=== PATIENT | male | born 1960 | race Hispanic/Latino ===

== ENCOUNTER 2022-07-10 09:51 | Outpatient (CLI) | payer BC ==
[2022-07-10 11:03] LABS: Bilirubin Neg (Negative); Blood, Urine Negative (Negative); Clarity Slightly Cloudy (Clear); Glucose, Urine (Dipstick) >=1000 mg/dL (Negative); Ketone, Urine 5 mg/dL (Negative); Leukocyte Negative (Negative); Nitrite Negative (Negative); Protein, Urine (Dipstick) Negative (Neg-Trace); Specific Gravity, Urine 1.005 (1.005-1.030); Urobilinogen Normal mg/dL (Less than 2)
== END 2022-07-10 09:52 | disposition home or self-care (01) ==
LOC: LABBT 09:51
PROVIDERS: ATTEND Orthopaedic Surgery
DX: Z01.818 Encounter for other preprocedural examination (principal); M17.12 Unilateral primary osteoarthritis, left knee; J98.6 Disorders of diaphragm
CPT/HCPCS: 71046; 80048; 81003; 85025; 85610; 86850; 86900; 86901; 87081; 93005; 93010

== ENCOUNTER 2022-07-15 06:06 | Inpatient (IN) | payer BC ==
[2022-07-10 11:13] LABS: #Basophils 0.1 10x3/uL (0.0-0.2); #Eosinphils 0.2 10x3/uL (0.0-0.5); #Monocytes 0.6 10x3/uL (0.0-1.1); #Neutrophils 7.9 10x3/uL (1.5-8.4); %Basophils 0.5 % (0.0-2.0); %Eosinophils 1.5 % (0.0-6.0); %Lymphocytes 17.9 % (18.0-47.0); %Monocytes 5.7 % (0.0-10.0); %Neutrophils 73.9 % (40.0-75.0); Hemoglobin 15.3 g/dL (13.5-17.5); Mean Corpuscular HGB CONC 34.5 g/dL (32.0-36.0); Mean Corpuscular Hemoglobin 30.8 pg (27.0-33.0); Mean Corpuscular Volume 89.3 fl (81.2-95.1); Mean Platelet Volume 10.1 fl (7.4-10.4); Platelet Count 259 10x3/uL (150-450); RBC Distribution Width 11.9 % (11.5-14.5); Red Blood Cell (RBC) Count 4.96 10x6/uL (4.32-5.72); White Blood Cell (WBC) Count 10.6 10x3/uL (3.5-10.5)
[2022-07-10 11:20] LABS: Prothrombin Time 10.6 sec (9.5-12.1)
[2022-07-10 11:21] LABS: Anion Gap 16 mmol/L (10-20); BUN (Urea Nitrogen) 15 mg/dL (8.4-25.7); Calc. Creatinine Clearance 0 mL/min (70-130); Calcium 9.4 mg/dL (7.8-10.44); Carbon Dioxide 22 mmol/L (22-29); Chloride 103 mmol/L (98-107); Estimated GFR 103; Glucose 231 mg/dL (70-105); Potassium 4.1 mmol/L (3.5-5.1); Sodium 137 mmol/L (136-145)
[2022-07-11 13:49] VITALS: BMI 37.6
[2022-07-15] MEDS ORDERED: Sodium Chloride 0.9% 100 ML ONE ×2 (07:58→09:17)
[2022-07-15] MEDS ORDERED: Vancomycin (BATCH) 1.5 GRAM/300 ML BAG ONE (07:58)
[2022-07-15] MEDS ORDERED: Tranexamic Acid 1,000 MG/10 ML VIAL ONE ×2 (07:58→11:54)
[2022-07-15] MEDS ORDERED: Bupivacaine PF 0.5% 30 ML VIAL ONE (08:30)
[2022-07-15] MEDS ORDERED: Fentanyl 100 MCG/2 ML VIAL ONE ×3 (08:30→15:14)
[2022-07-15] MEDS ORDERED: Midazolam HCl 2 mg/2 ml Vial ONE (08:30)
[2022-07-15 08:45] LABS: SARS-CoV-2 NAA Rapid Test Not Detected (NotDetected)
[2022-07-15] MEDS ORDERED: Bupivacaine HCl 0.5%/Epinephrine 1:200,000/PF 30 ml Vial ONE (09:10)
[2022-07-15] MEDS ORDERED: CEFAZOLIN 2 GM VIAL ONE (09:17)
[2022-07-15] MEDS ORDERED: Bupivacaine 0.25% HCL 30 ML VIAL ONE (09:24)
[2022-07-15] MEDS ORDERED: Fentanyl 100 MCG/2 ML VIAL SLOW IVP PRN (09:28)
[2022-07-15] MEDS ORDERED: Promethazine HCl 25 MG/ML VIAL IM PRN ×3 (09:30→11:35)
[2022-07-15] MEDS ORDERED: Ropivacaine 0.2% 550 ML 550 ML NERVE BLCK SCH (09:30)
[2022-07-15] MEDS ORDERED: Ondansetron PF 4 MG/2 ML Vial IVP PRN ×2 (09:30→11:23)
[2022-07-15] MEDS ORDERED: HYDROcodone/Acetaminophen 10/325 mg Tablet PO PRN (09:30)
[2022-07-15] MEDS ORDERED: Zolpidem Tartrate 5 MG TAB PO PRN ×2 (09:30→11:23)
[2022-07-15] MEDS ORDERED: traMADol HCl 50 MG TAB PO PRN ×2 (09:30)
[2022-07-15] MEDS ORDERED: fentaNYL PF 100 MCG/2 ML SYRINGE ONE (09:40)
[2022-07-15] MEDS ORDERED: PROPOFOL 200 MG/20 ML VIAL ONE (09:46)
[2022-07-15] MEDS ORDERED: Lidocaine 1% PF 5 ML VIAL ONE (09:46)
[2022-07-15] MEDS ORDERED: Ketorolac Tromethamine 30 MG/ML VIAL ONE (09:46)
[2022-07-15] MEDS ORDERED: Esmolol 100 MG/10 ML VIAL ONE (09:46)
[2022-07-15] MEDS ORDERED: Metoprolol Tartrate 5 MG/5 ML VIAL ONE (09:46)
[2022-07-15] MEDS ORDERED: Ondansetron PF 4 MG/2 ML Vial ONE (09:46)
[2022-07-15] MEDS ORDERED: HYDROmorphone 2 MG/ML VIAL ONE (10:30)
[2022-07-15] MEDS ORDERED: Acetaminophen 325 MG TAB PO PRN (11:23)
[2022-07-15] MEDS ORDERED: diphenhydrAMINE 25 MG CAP PO PRN (11:23)
[2022-07-15] MEDS ORDERED: Tranexamic Acid 1,000 MG in Sodium Chloride 0.9% 100 ML IVPB SCH (11:30)
[2022-07-15] MEDS ORDERED: HYDROmorphone 2 MG/ML VIAL SLOW IVP PRN (11:35)
[2022-07-15] MEDS ORDERED: PACU-Morphine 4MG/ML VIAL SLOW IVP PRN (11:35)
[2022-07-15] MEDS ORDERED: Ondansetron HCl/PF 4 MG/2 ML Vial IVP PRN (11:35)
[2022-07-15] MEDS: Ketorolac Tromethamine 30 MG/ML VIAL IVP SCH ×3 (12:00→22:22)
[2022-07-15] MEDS ORDERED: HYDROmorphone 0.5 MG/0.5 ML SYRINGE ONE (16:32)
[2022-07-15] MEDS: CEFAZOLIN 2 GM in Sodium Chloride 0.9% 100 ML IVPB SCH (20:38)
[2022-07-15] MEDS: metFORMIN 500 MG TAB PO SCH (20:39)
[2022-07-15] MEDS: Atorvastatin Calcium 10 MG TAB PO SCH (20:40)
[2022-07-15] MEDS: Senokot S 8.6-50 MG TAB PO SCH (20:40)
[2022-07-15] MEDS: Sodium Chloride 0.9% 1,000 ML IV SCH ×2 (20:40→22:28)
[2022-07-15] MEDS: Ferrous Gluconate 324 MG TAB PO SCH (20:40)
[2022-07-15] MEDS: HYDROcodone/Acetaminophen 10/325 mg Tablet PO PRN (20:45)
[2022-07-15] MEDS ORDERED: Aspirin 81 mg Enteric Coated Tablet PO SCH (21:00)
[2022-07-15] MEDS ORDERED: Vancomycin 1.5 GRAM/300 ML BAG 1.5 GM in Premix Bag 1 BAG IVPB SCH (21:00)
[2022-07-16] MEDS: CEFAZOLIN 2 GM in Sodium Chloride 0.9% 100 ML IVPB SCH (03:26)
[2022-07-16] MEDS: Ketorolac Tromethamine 30 MG/ML VIAL IVP SCH ×3 (05:40→17:10)
[2022-07-16] MEDS: HYDROcodone/Acetaminophen 10/325 mg Tablet PO PRN ×4 (05:41→20:20)
[2022-07-16 06:37] LABS: Mean Corpuscular HGB CONC 34.3 g/dL (32.0-36.0); Mean Corpuscular Hemoglobin 31.9 pg (27.0-31.0); Mean Corpuscular Volume 93.1 fl (78.0-98.0); Mean Platelet Volume 7.5 fL (7.4-10.4); Platelet Count 220 10x3/uL (130-400); RBC Distribution Width 11.4 % (11.5-14.5); Red Blood Cell (RBC) Count 4.07 mill/uL (4.70-6.10); White Blood Cell (WBC) Count 11.2 10x3/uL (4.8-10.8)
[2022-07-16] MEDS: Sodium Chloride 0.9% 1,000 ML IV SCH ×2 (08:06→18:23)
[2022-07-16] MEDS: Aspirin Chewable 81 MG TAB PO SCH ×2 (08:08→20:20)
[2022-07-16] MEDS: Ferrous Gluconate 324 MG TAB PO SCH ×2 (08:08→20:20)
[2022-07-16] MEDS: Senokot S 8.6-50 MG TAB PO SCH ×4 (08:08→20:20)
[2022-07-16] MEDS: metFORMIN 500 MG TAB PO SCH ×2 (08:08→17:09)
[2022-07-16] MEDS: Multivitamin W/ Minerals 1 TAB PO SCH (08:09)
[2022-07-16] MEDS: Atorvastatin Calcium 10 MG TAB PO SCH (20:20)
[2022-07-17] MEDS: Ketorolac Tromethamine 30 MG/ML VIAL IVP SCH ×2 (01:27→05:42)
[2022-07-17] MEDS: Sodium Chloride 0.9% 1,000 ML IV SCH ×3 (05:41→16:54)
[2022-07-17 06:23] LABS: Hemoglobin 12.2 g/dL (14.0-18.0); Mean Corpuscular HGB CONC 35.2 g/dL (32.0-36.0); Mean Corpuscular Hemoglobin 32.7 pg (27.0-31.0); Mean Corpuscular Volume 92.7 fl (78.0-98.0); Mean Platelet Volume 8.6 fL (7.4-10.4); Platelet Count 164 10x3/uL (130-400); RBC Distribution Width 11.5 % (11.5-14.5); Red Blood Cell (RBC) Count 3.73 mill/uL (4.70-6.10); White Blood Cell (WBC) Count 10.6 10x3/uL (4.8-10.8)
[2022-07-17] MEDS ORDERED: Lisinopril 5 MG TAB PO SCH (09:00)
[2022-07-17] MEDS: metFORMIN 500 MG TAB PO SCH (09:34)
[2022-07-17] MEDS: Senokot S 8.6-50 MG TAB PO SCH ×2 (09:34→20:33)
[2022-07-17] MEDS: Ferrous Gluconate 324 MG TAB PO SCH ×2 (09:34→20:33)
[2022-07-17] MEDS: Multivitamin W/ Minerals 1 TAB PO SCH (09:35)
[2022-07-17] MEDS: Aspirin Chewable 81 MG TAB PO SCH (09:35)
[2022-07-17] MEDS: HYDROcodone/Acetaminophen 10/325 mg Tablet PO PRN ×3 (09:39→20:40)
[2022-07-17] MEDS ORDERED: Dextrose 50% Abboject 50 ML SYRINGE SLOW IVP PRN (12:31)
[2022-07-17] MEDS ORDERED: Dextrose 5% in Water 1,000 ML IV PRN (12:31)
[2022-07-17] MEDS ORDERED: Labetalol HCl 100 MG/20 ML VIAL SLOW IVP PRN (12:32)
[2022-07-17] MEDS ORDERED: Electrolyte Replacement Protocol 1 EACH FS SCH (14:45)
[2022-07-17] MEDS ORDERED: Enalaprilat Dihydrate 1.25 MG/ML VIAL SLOW IVP PRN (14:52)
[2022-07-17] MEDS ORDERED: glipiZIDE 5 MG TAB PO SCH (15:00)
[2022-07-17 15:09] LABS: Hemoglobin 12.1 g/dL (14.0-18.0); Platelet Count 215 10x3/uL (130-400)
[2022-07-17 15:20] LABS: INR-International Normal Ratio 1.2; Prothrombin Time 15.7 sec (12.0-14.7)
[2022-07-17] MEDS ORDERED: Electrolyte Replacement Protocol FS PRN (15:30)
[2022-07-17 15:35] LABS: Anion Gap 12 mmol/L (10-20); BUN (Urea Nitrogen) 11 mg/dL (8.4-25.7); Calc. Creatinine Clearance 184 mL/min (70-130); Carbon Dioxide 25 mmol/L (22-29); Chloride 99 mmol/L (98-107); Estimated GFR 105; Glucose 277 mg/dL (70-105); Magnesium 1.8 mg/dL (1.6-2.6); Phosphorus 3.3 mg/dL (2.3-4.7); Potassium 3.6 mmol/L (3.5-5.1); Sodium 132 mmol/L (136-145)
[2022-07-17] MEDS: Heparin 25,000 units/D5W 500 ML IVPB SCH (16:44)
[2022-07-17] MEDS: Insulin Regular 300 UNITS/3 ML VIAL SC PRN (17:18)
[2022-07-17] MEDS ORDERED: Iopamidol 370 76% 100 ML VIAL ONE (17:24)
[2022-07-17] MEDS ORDERED: Calcium Carbonate 500 MG ChewTAB PO PRN (18:44)
[2022-07-17] MEDS: Lisinopril 5 MG TAB PO SCH (20:33)
[2022-07-17] MEDS: Famotidine 20 MG TAB PO SCH (20:34)
[2022-07-17] MEDS: Atorvastatin Calcium 10 MG TAB PO SCH (20:34)
[2022-07-18] MEDS: Heparin 10,000 UNITS/ 10 ML VIAL SLOW IVP SCH ×3 (00:14→22:37)
[2022-07-18] MEDS: Insulin Regular 300 UNITS/3 ML VIAL SC PRN ×4 (01:32→21:10)
[2022-07-18] MEDS: HYDROcodone/Acetaminophen 10/325 mg Tablet PO PRN ×3 (03:47→22:42)
[2022-07-18] MEDS: Heparin 25,000 units/D5W 500 ML IVPB SCH ×2 (04:32→17:04)
[2022-07-18] MEDS: Sodium Chloride 0.9% 1,000 ML IV SCH ×2 (05:41→17:04)
[2022-07-18] MEDS ORDERED: Magnesium 2 GM/50 ML(in water) 2 GM in Premix Bag 1 BAG IVPB SCH (08:00)
[2022-07-18] MEDS: Ferrous Gluconate 324 MG TAB PO SCH ×2 (09:02→21:08)
[2022-07-18] MEDS: glipiZIDE 5 MG TAB PO SCH (09:02)
[2022-07-18] MEDS: Senokot S 8.6-50 MG TAB PO SCH ×2 (09:03→21:08)
[2022-07-18] MEDS: Multivitamin W/ Minerals 1 TAB PO SCH (09:03)
[2022-07-18 09:07] LABS: #Basophils 0.1 thou/uL (0.0-0.2); #Eosinphils 0.2 thou/uL (0.0-0.7); #Lymphocytes 1.6 thou/uL (1.20-3.40); #Monocytes 0.9 thou/uL (0.11-0.59); #Neutrophils 9.6 thou/uL (1.40-6.50); %Basophils 0.6 % (0.0-1.0); %Eosinophils 1.3 % (0.0-10.0); %Lymphocytes 13.2 % (21.0-51.0); %Monocytes 7.5 % (0.0-10.0); %Neutrophils 77.4 % (42.0-75.0); Mean Corpuscular HGB CONC 34.5 g/dL (32.0-36.0); Mean Corpuscular Hemoglobin 31.6 pg (27.0-31.0); Mean Corpuscular Volume 91.7 fl (78.0-98.0); Mean Platelet Volume 7.7 fL (7.4-10.4); Platelet Count 237 10x3/uL (130-400); RBC Distribution Width 11.4 % (11.5-14.5); Red Blood Cell (RBC) Count 4.12 mill/uL (4.70-6.10); White Blood Cell (WBC) Count 12.4 10x3/uL (4.8-10.8)
[2022-07-18] MEDS: Lisinopril 5 MG TAB PO SCH ×2 (09:07→21:09)
[2022-07-18] MEDS: Famotidine 20 MG TAB PO SCH ×2 (09:07→21:08)
[2022-07-18 09:21] LABS: Anion Gap 17 mmol/L (10-20); BUN (Urea Nitrogen) 9 mg/dL (8.4-25.7); Calc. Creatinine Clearance 176 mL/min (70-130); Calcium 9.2 mg/dL (7.8-10.44); Carbon Dioxide 24 mmol/L (22-29); Chloride 97 mmol/L (98-107); Estimated GFR 104; Glucose 289 mg/dL (70-105); Potassium 3.5 mmol/L (3.5-5.1); Sodium 134 mmol/L (136-145)
[2022-07-18] MEDS ORDERED: Potassium Chloride 20 MEQ TAB PO SCH (10:15)
[2022-07-18] MEDS: hydrALAZINE 20 MG/ML VIAL SLOW IVP PRN ×2 (11:38→16:05)
[2022-07-18] MEDS: FENTANYL 50 MCG/ML 1 ML VIAL SLOW IVP PRN ×3 (16:10→21:09)
[2022-07-18] MEDS: Atorvastatin Calcium 10 MG TAB PO SCH (21:08)
[2022-07-19] MEDS: FENTANYL 50 MCG/ML 1 ML VIAL SLOW IVP PRN ×3 (03:04→15:26)
[2022-07-19] MEDS: Heparin 25,000 units/D5W 500 ML IVPB SCH ×2 (03:05→15:19)
[2022-07-19 05:00] LABS: Hemoglobin A1c 8.1 % (4.0-6.0)
[2022-07-19 05:02] LABS: #Eosinphils 0.2 thou/uL (0.0-0.7); #Lymphocytes 1.8 thou/uL (1.20-3.40); #Neutrophils 7.6 thou/uL (1.40-6.50); %Basophils 0.3 % (0.0-1.0); %Eosinophils 2.3 % (0.0-10.0); %Lymphocytes 17.1 % (21.0-51.0); %Monocytes 9.6 % (0.0-10.0); %Neutrophils 70.7 % (42.0-75.0); Hemoglobin 11.2 g/dL (14.0-18.0); Mean Corpuscular HGB CONC 34.7 g/dL (32.0-36.0); Mean Corpuscular Hemoglobin 31.8 pg (27.0-31.0); Mean Corpuscular Volume 91.5 fl (78.0-98.0); Mean Platelet Volume 9.1 fL (7.4-10.4); Platelet Count 187 10x3/uL (130-400); RBC Distribution Width 11.4 % (11.5-14.5); Red Blood Cell (RBC) Count 3.53 mill/uL (4.70-6.10); White Blood Cell (WBC) Count 10.8 10x3/uL (4.8-10.8)
[2022-07-19 05:23] LABS: Anion Gap 15 mmol/L (10-20); BUN (Urea Nitrogen) 10 mg/dL (8.4-25.7); Calc. Creatinine Clearance 201 mL/min (70-130); Calcium 8.6 mg/dL (7.8-10.44); Carbon Dioxide 22 mmol/L (22-29); Chloride 101 mmol/L (98-107); Estimated GFR 108; Glucose 245 mg/dL (70-105); Magnesium 2.1 mg/dL (1.6-2.6); Phosphorus 3.5 mg/dL (2.3-4.7); Potassium 3.7 mmol/L (3.5-5.1); Sodium 134 mmol/L (136-145)
[2022-07-19] MEDS: HYDROcodone/Acetaminophen 10/325 mg Tablet PO PRN ×3 (05:45→17:07)
[2022-07-19] MEDS: Insulin Regular 300 UNITS/3 ML VIAL SC PRN ×2 (05:47→11:30)
[2022-07-19] MEDS ORDERED: Milk Of Magnesia 30 ML UDCUP PO PRN (07:40)
[2022-07-19] MEDS: Lisinopril 5 MG TAB PO SCH (08:44)
[2022-07-19] MEDS: Famotidine 20 MG TAB PO SCH (08:44)
[2022-07-19] MEDS: glipiZIDE 5 MG TAB PO SCH (08:45)
[2022-07-19] MEDS: Multivitamin W/ Minerals 1 TAB PO SCH (08:45)
[2022-07-19] MEDS: Senokot S 8.6-50 MG TAB PO SCH (08:45)
[2022-07-19] MEDS: Ferrous Gluconate 324 MG TAB PO SCH (08:45)
[2022-07-19] MEDS: Sodium Chloride 0.9% 1,000 ML IV SCH (08:54)
[2022-07-19] MEDS ORDERED: Amlodipine 5 MG TAB PO SCH (12:15)
[2022-07-19 15:23] LABS: Hemoglobin 11.2 g/dL (14.0-18.0); Platelet Count 271 10x3/uL (130-400)
[2022-07-19 16:35] VITALS: BP 150/80; TEMP 97.8
[2022-07-19] MEDS ORDERED: Apixaban 5 MG TAB PO SCH (18:00)
[2022-07-20] MEDS ORDERED: Amlodipine 5 MG TAB PO SCH (09:00)
[2022-07-26] MEDS ORDERED: Apixaban 5 MG TAB PO SCH (21:00)
== END 2022-07-19 18:00 | disposition home or self-care (01) | DRG 469 ==
LOC: SDC 06:06 → EDSTATUS 10:00 → SURG A 18:53 → OBSVTOIN 07-17 12:45 → 2NO 07-17 16:11
PROVIDERS: ADMIT Orthopaedic Surgery; ATTEND Orthopaedic Surgery
PROC: 0SRD0J9 Replacement of Left Knee Joint with Synthetic Substitute, Cemented, Open Approach (ICD-10-PCS; principal; 2022-07-15)
DX: M17.12 Unilateral primary osteoarthritis, left knee (principal); I26.99 Other pulmonary embolism without acute cor pulmonale; J96.01 Acute respiratory failure with hypoxia; I10 Essential (primary) hypertension; E78.5 Hyperlipidemia, unspecified; E66.9 Obesity, unspecified; E11.9 Type 2 diabetes mellitus without complications; Z79.82 Long term (current) use of aspirin; Z79.84 Long term (current) use of oral hypoglycemic drugs; Z98.890 Other specified postprocedural states; Z68.27 Body mass index [BMI] 27.0-27.9, adult; Z79.899 Other long term (current) drug therapy
CPT/HCPCS: 36415; 36416; 71275; 80048; 83036; 83735; 84100; 84484; 85025; 85027; 85610; 85730; 86850; 86900; 86901; 87081; 93005; 93010; 93306; 96374; 96375; 96376; A4306; C1713; C1776; G0378; J0360; J1170; J1644; J1815; J1885; J2250; J2405; J2704; J2795; J3010; J3370; J3475; J3490; J7050; Q9967; S0020; U0002

== ENCOUNTER 2023-08-06 08:51 | Outpatient (CLI) | payer BC | END 2023-08-06 08:52 | disposition home or self-care (01) | LOC: LABBT 08:51 | PROVIDERS: ATTEND Orthopaedic Surgery | DX: Z01.818 Encounter for other preprocedural examination (principal) | CPT/HCPCS: 71046; 93005; 93010 ==

== ENCOUNTER 2023-08-11 06:44 | Observation (INO) | payer BC ==
[2023-08-06 09:22] VITALS: BMI 36.9
[2023-08-06 10:35] LABS: Bilirubin Neg (Negative); Blood, Urine Negative (Negative); Clarity Clear (Clear); Glucose, Urine (Dipstick) >=1000 mg/dL (Negative); Ketone, Urine Negative (Negative); Leukocyte Negative (Negative); Nitrite Negative (Negative); Protein, Urine (Dipstick) Negative (Neg-Trace); Specific Gravity, Urine 1.015 (1.005-1.030); Urobilinogen Normal mg/dL (Less than 2)
[2023-08-06 10:44] LABS: #Basophils 0.05 10x3/uL (0.0-0.2); #Monocytes 0.44 10x3/uL (0.0-1.1); #Neutrophils 4.77 10x3/uL (1.5-8.4); %Basophils 0.7 % (0.0-2.0); %Eosinophils 2.6 % (0.0-6.0); %Lymphocytes 27.5 % (18.0-47.0); %Monocytes 5.8 % (0.0-10.0); Hematocrit 46.5 % (38.8-50.0); Hemoglobin 16.1 g/dL (13.5-17.5); Mean Corpuscular HGB CONC 34.6 g/dL (32.0-36.0); Mean Corpuscular Volume 89.6 fl (81.2-95.1); Mean Platelet Volume 9.9 fl (7.4-10.4); Platelet Count 244 10x3/uL (150-450); Red Blood Cell (RBC) Count 5.19 10x6/uL (4.32-5.72); White Blood Cell (WBC) Count 7.6 10x3/uL (3.5-10.5)
[2023-08-06 11:11] LABS: Anion Gap 13 mmol/L (10-20); BUN (Urea Nitrogen) 20 mg/dL (8.4-25.7); Calc. Creatinine Clearance 0 mL/min (70-130); Calcium 9.2 mg/dL (7.8-10.44); Carbon Dioxide 24 mmol/L (23-31); Chloride 107 mmol/L (98-107); Estimated GFR 104; Glucose 154 mg/dL (80-115); INR-International Normal Ratio 1.1; Potassium 4.4 mmol/L (3.5-5.1); Prothrombin Time 11.4 sec (9.5-12.1); Sodium 140 mmol/L (136-145)
[2023-08-11] MEDS ORDERED: Vancomycin (BATCH) 1.5 GM/300 ML BAG ONE (07:17)
[2023-08-11] MEDS ORDERED: Tranexamic Acid 1,000 MG/10 ML VIAL ONE ×2 (07:17→12:35)
[2023-08-11] MEDS ORDERED: Sodium Chloride 0.9% 100 ML ONE ×2 (07:17→09:27)
[2023-08-11] MEDS ORDERED: EPINEPHrine 1 MG/ML VIAL ONE (08:14)
[2023-08-11] MEDS ORDERED: Bupivacaine PF 0.5% 30 ML VIAL ONE ×2 (08:15→09:12)
[2023-08-11] MEDS ORDERED: Midazolam HCl 2 mg/2 ml Vial ONE (08:15)
[2023-08-11] MEDS ORDERED: fentaNYL 50 mcg/mL 1 mL Vial ONE ×3 (08:15→12:13)
[2023-08-11] MEDS ORDERED: fentaNYL 50 mcg/mL 1 mL Vial SLOW IVP PRN (08:40)
[2023-08-11] MEDS ORDERED: Ondansetron PF 4 MG/2 ML Vial IVP PRN ×2 (08:45→11:54)
[2023-08-11] MEDS ORDERED: traMADol HCl 50 MG TAB PO PRN ×2 (08:45)
[2023-08-11] MEDS ORDERED: Ropivacaine 0.2% 550 ML 550 ML NERVE BLCK SCH (08:45)
[2023-08-11] MEDS ORDERED: Promethazine HCl 25 MG/ML VIAL IM PRN ×3 (08:45→11:54)
[2023-08-11] MEDS ORDERED: Zolpidem Tartrate 5 MG TAB PO PRN ×2 (08:45→11:54)
[2023-08-11] MEDS ORDERED: CEFAZOLIN 2 GM VIAL ONE (09:27)
[2023-08-11] MEDS ORDERED: PROPOFOL 20 ML ONE (09:40)
[2023-08-11] MEDS ORDERED: Lidocaine 1% PF 5 ML VIAL ONE (09:40)
[2023-08-11] MEDS ORDERED: Ondansetron PF 4 MG/2 ML Vial ONE ×2 (09:40→14:10)
[2023-08-11] MEDS ORDERED: fentaNYL PF 100 MCG/2 ML SYRINGE ONE ×2 (09:40→10:07)
[2023-08-11] MEDS ORDERED: HYDROmorphone 2 MG/ML VIAL ONE (10:29)
[2023-08-11] MEDS ORDERED: HYDROmorphone 2 MG/ML VIAL SLOW IVP PRN (11:49)
[2023-08-11] MEDS ORDERED: Ondansetron HCl/PF 4 MG/2 ML Vial IVP PRN (11:49)
[2023-08-11] MEDS ORDERED: Acetaminophen 325 MG TAB PO PRN (11:54)
[2023-08-11] MEDS ORDERED: diphenhydrAMINE 25 MG CAP PO PRN (11:54)
[2023-08-11] MEDS ORDERED: Tranexamic Acid 1,000 MG in Sodium Chloride 0.9% 100 ML IVPB SCH (12:00)
[2023-08-11] MEDS ORDERED: HYDROmorphone 0.5 MG/0.5 ML SYRINGE ONE ×3 (12:31→12:54)
[2023-08-11] MEDS ORDERED: Ketorolac Tromethamine 30 MG (1 mL) VIAL ONE (12:53)
[2023-08-11] MEDS: Ketorolac Tromethamine 30 MG (1 mL) VIAL IVP SCH (16:13)
[2023-08-11] MEDS: Sodium Chloride 0.9% 1,000 ML IV SCH (16:13)
[2023-08-11] MEDS: CEFAZOLIN 2 GM in Sodium Chloride 0.9% 100 ML IVPB SCH (16:54)
[2023-08-11] MEDS: HYDROcodone/Acetaminophen 10/325 mg Tablet PO PRN (17:01)
[2023-08-11] MEDS: Vancomycin (BATCH) 1.5 GM in Premix 1 BAG IVPB SCH (19:29)
[2023-08-11] MEDS: Aspirin 81 mg Enteric Coated Tablet PO SCH (20:46)
[2023-08-11] MEDS: Ferrous Gluconate 324 MG TAB PO SCH (20:46)
[2023-08-11] MEDS: metFORMIN 500 MG TAB PO SCH (20:47)
[2023-08-11] MEDS: Atorvastatin Calcium 10 MG TAB PO SCH (20:47)
[2023-08-11] MEDS: Senokot S 8.6-50 MG TAB PO SCH (20:47)
[2023-08-11] MEDS ORDERED: metFORMIN 500 MG TAB PO SCH (21:00)
[2023-08-11] MEDS ORDERED: Atorvastatin Calcium 10 MG TAB PO SCH (21:00)
[2023-08-11] MEDS: Vancomycin 1.5 GM in Sodium Chloride 0.9% 250 ML 300 ML IVPB SCH (21:05)
[2023-08-12 04:34] LABS: Hematocrit 37.1 % (42.0-52.0); Hemoglobin 12.6 g/dL (14.0-18.0); Mean Corpuscular Volume 91.4 fL (78.0-98.0); Mean Platelet Volume 10.3 fL (7.4-10.4); Platelet Count 192 10x3/uL (130-400); RBC Distribution Width 12.2 % (11.5-14.5); Red Blood Cell (RBC) Count 4.06 mill/uL (4.70-6.10)
[2023-08-12 07:37] VITALS: TEMP 98.2
[2023-08-12] MEDS ORDERED: Multivitamin W/ Minerals 1 TAB PO SCH ×2 (09:00)
[2023-08-12] MEDS: Lisinopril 5 MG TAB PO SCH (09:04)
[2023-08-12] MEDS: Empagliflozin 10 MG TAB PO SCH (09:05)
[2023-08-12] MEDS: HYDROcodone/Acetaminophen 10/325 mg Tablet PO PRN (09:05)
[2023-08-12 11:30] VITALS: BP 154/76
== END 2023-08-12 11:20 | disposition home or self-care (01) ==
LOC: SDC 06:44 → SJJU 11:55
PROVIDERS: ADMIT Orthopaedic Surgery; ATTEND Orthopaedic Surgery
PROC: 0SRC0JZ Replacement of Right Knee Joint with Synthetic Substitute, Open Approach (ICD-10-PCS; principal; 2023-08-11)
DX: M17.11 Unilateral primary osteoarthritis, right knee (principal); I10 Essential (primary) hypertension; E66.9 Obesity, unspecified; E11.9 Type 2 diabetes mellitus without complications; E78.5 Hyperlipidemia, unspecified; Z96.652 Presence of left artificial knee joint; Z79.84 Long term (current) use of oral hypoglycemic drugs; Z79.899 Other long term (current) drug therapy
CPT/HCPCS: 36415; 80048; 81003; 85025; 85027; 85610; 86850; 86900; 86901; 87081; A4306; C1713; C1776; J0171; J0665; J1170; J1885; J2250; J2405; J2704; J2795; J3010; J3370; J3490